=== PATIENT | female | born 1965 | race Caucasian/White ===

== ENCOUNTER → 2020-08-08 | Outpatient (CLI) | payer BC ==
[~2020-08-08] MED LIST: VERAPAMIL ER120 M1 PO
== END ==
LOC: HEART 5 09:13
DX: J45.40 Moderate persistent asthma, uncomplicated (principal)
CPT/HCPCS: 95012

== ENCOUNTER 2021-06-15 12:40 | Emergency (ER) | payer BC ==
[2021-06-15 14:34] LABS: HEMOGLOBIN 12.2 gm/dl (12.3-15.3); RED BLOOD COUNT 4.39 M/UL (4.00-5.10); WHITE BLOOD COUNT 10.9 K/UL (4.5-11.0)
[2021-06-15 14:40] LABS: BUN/CREATININE RATIO 16 (0-10)
== END 2021-06-15 16:18 | disposition home or self-care (01) ==
LOC: ER1 12:40
PROVIDERS: Nurse Practitioner
DX: G43.909 Migraine, unspecified, not intractable, without status migrainosus (principal); Z90.49 Acquired absence of other specified parts of digestive tract; Z88.0 Allergy status to penicillin; Z88.2 Allergy status to sulfonamides; Z88.1 Allergy status to other antibiotic agents; Z88.8 Allergy status to other drugs, medicaments and biological substances
CPT/HCPCS: 70450; 72125; 80053; 85025; 96365; 96372; 96375; 99284; J1100; J1885; J2360; J2765; J7030